=== PATIENT | female | born 1965 | race Caucasian/White ===

== ENCOUNTER 2017-09-13 15:17 | Observation (INO) | payer OTHER ==
[~2017-09-13] VITALS: Ht 157.5 cm; Wt 60.1 kg
[2017-09-13 15:28] VITALS: BP 125/70
[2017-09-13 16:37] LABS: ABSOLUTE LYMPHOCYTES 1.9 thou/uL (0.8-5.3)
[2017-09-13 16:39] LABS: ABSOLUTE BASOPHILS 0.1 thou/uL (0.0-0.2); ABSOLUTE EOSINOPHILS 0.2 thou/uL (0.0-0.7); ABSOLUTE MONOCYTES 0.7 thou/uL (0.0-1.2); ABSOLUTE NEUTROPHILS 4.5 thou/uL (1.6-8.1); EOSINOPHILS 2.3 %; HEMATOCRIT 40.5 % (37.0-47.0); HEMOGLOBIN 13.7 gm/dL (12.0-15.0); LYMPHOCYTES 26.2 %; MCH 30.9 pg (26.0-34.0); MCHC 33.7 g/dL (28.0-37.0); MCV 91.7 fL (80.0-100.0); MONOCYTES 9.2 %; MPV 7.3 fl. (7.2-11.1); NUCLEATED RBCS 0 /100WBC; PLATELET COUNT* 231 thou/uL (150-400); POLYS 61.3 %; RBC 4.42 mil/uL (4.20-5.00); RDW-CV 13.8 % (10.5-14.5); WBC 7.3 thou/uL (4.0-11.0)
[2017-09-13 16:46] LABS: CALCIUM 8.8 mg/dL (8.5-10.1); CREATININE 0.8 mg/dL (0.6-1.3)
[2017-09-13 16:51] LABS: ALBUMIN 3.7 g/dL (3.4-5.0); TOTAL BILIRUBIN 0.3 mg/dL (<0.1-1.0); TOTAL PROTEIN 6.9 g/dL (6.4-8.2)
[2017-09-13 18:34] LABS: URINE BILIRUBIN NEGATIVE (Negative); URINE BLOOD 2+ (Negative); URINE CLARITY CLEAR; URINE COLOR YELLOW; URINE GLUCOSE-RANDOM NEGATIVE (Negative); URINE KETONES 1+ (Negative); URINE LEUKOCYTES-REFLEX TRACE (Negative); URINE NITRITE-REFLEX NEGATIVE (Negative); URINE PROTEIN NEGATIVE (Negative); URINE UROBILINOGEN 0.2 E.U./dl (0.2-1.0)
[2017-09-13 18:35] LABS: MUCUS 4-6 Moderate strn/LPF (None Seen); SQUAMOUS 0-3 Few /LPF (0-3)
[2017-09-13 18:36] LABS: BACTERIA-REFLEX 1-9 Few /HPF (None Seen); CASTS None Seen /LPF (None Seen); URINE WBC-REFLEX 0-5 Rare /HPF (0-5)
[2017-09-13 18:37] LABS: AMORPHOUS PHOSPHATES Moderate /LPF (None Seen); URINE RBC 0-2 Rare /HPF (0-2)
[2017-09-13 20:44] VITALS: BP 103/64
[2017-09-13 21:30] VITALS: BP 127/65
[2017-09-14 07:50] VITALS: BP 82/49
[2017-09-14 10:00] VITALS: BP 94/52
[2017-09-14] MEDS ORDERED: FLOMAX0.4 MG PO (12:14)
[2017-09-14 12:47] VITALS: BP 94/52
[2017-09-14] MEDS ORDERED: TYLENOL EXTRA500 MG PO (12:52)
[2017-09-14] MEDS ORDERED: IBUPROFEN 800800 M1 PO (12:53)
[2017-09-23 17:12] LABS: STONE CA OXALATE MONOHYDRATE 85 % (()); STONE CALCIUM PHOSPHATE 15 % (()); STONE COLOR Brown (()); STONE WEIGHT 14.4 mg (())
== END 2017-09-14 13:50 | disposition still patient (30) ==
LOC: M.ERS 15:17 → M.3W 19:27 → M.TBA-ER 19:27 → M.3W 21:36
PROVIDERS: Physician Assistant; Urology; ADMIT Internal Medicine
DX: N20.2 Calculus of kidney with calculus of ureter (principal); N28.9 Disorder of kidney and ureter, unspecified; K76.9 Liver disease, unspecified; N13.30 Unspecified hydronephrosis; Z84.1 Family history of disorders of kidney and ureter; Z79.899 Other long term (current) drug therapy